=== PATIENT | female | born 1970 | race Caucasian/White ===

== ENCOUNTER 2021-01-21 16:59 | Outpatient (REF) | payer OTHER, SELFPAY ==
--- NOTE | ~2021-01-21 | XR_ITS ---
Examination: XR hand wrist LT Indication: S69.90XA - Unspecified injury of left wrist, hand Comparison: No pertinent prior studies are currently available for comparison. Technique: 3 views of the left wrist and hand obtained Findings: Bones are normal anatomic alignment. I do not appreciate any acute fracture or dislocation. No bony destructive lesions or periosteal reaction. No significant bony degenerative changes. Surrounding soft tissues unremarkable. XR/XR hand wrist LT Impression: No acute bony abnormality.
== END 2021-01-21 17:00 | disposition home or self-care (01) ==
LOC: HO.HMGCX 16:59
PROVIDERS: PCP Internal Medicine; Visit Provider Nurse Practitioner Family
DX: S69.92XA Unspecified injury of left wrist, hand and finger(s), initial encounter (principal); X58.XXXA Exposure to other specified factors, initial encounter; Y93.9 Activity, unspecified; Y92.9 Unspecified place or not applicable; Y99.9 Unspecified external cause status
CPT/HCPCS: 73110; 73130

== ENCOUNTER 2021-02-07 11:41 | Outpatient (REF) | payer OTHER, SELFPAY ==
--- NOTE | ~2021-02-07 | XR_ITS ---
EXAMINATION: XR CHEST CLINICAL INFORMATION: Covid 19 infection COMPARISON: None TECHNIQUE: 2 views of the chest were obtained. FINDINGS: The lungs are well expanded. There is no focal consolidation, edema, or effusion. Mild bronchial wall thickening noted. No pneumothorax. The cardiomediastinal silhouette is within normal limits. No acute osseous abnormality. XR/XR chest 2V IMPRESSION: No consolidation or significant parenchymal abnormality. There is bronchial wall thickening which can be seen with viral infection or asthma.
[2021-02-07 12:25] LABS: MANUAL DIFF FLAG NO
[2021-02-07 12:31] LABS: Basophils Percent Auto 0.2 % (0-2); Hematocrit 38.6 % (37-47); Hemoglobin 12.7 g/dl (12.0-16.0); Imm Gran Abs Auto 0.01 X10*3/uL (0.00-0.03); Imm Gran Pct Auto 0.2 % (0.0-0.4); Lymphocytes Absolute Auto 1.1 X10*3/uL (1.2-4.9); Lymphocytes Percent Auto 23.5 % (20-40); Mean Corpuscular HGB Conc 32.9 g/dl (31.0-35.0); Mean Corpuscular Hemoglobin 29.7 pg (27.0-33.0); Mean Corpuscular Volume 90.2 fL (80-98); Mean Platelet Volume 10.2 fL (9.4-12.3); Monocytes Absolute Auto 0.4 X10*3/uL (0.1-1.2); Monocytes Percent Auto 8.6 % (2-11); Neutrophils Absolute Auto 3.1 X10*3/uL (2.0-8.3); Neutrophils Percent Auto 67.5 % (45-73); Platelet Count 219 X10*3/uL (160-400); Red Blood Count 4.28 X10*6/uL (4.20-5.50); White Blood Count 4.6 X10*3/uL (4.8-10.8)
[2021-02-07 13:04] LABS: Alanine Aminotransferase 92 U/L (0-31); Albumin Level 4.1 g/dL (3.5-5.0); Alkaline Phosphatase 110 U/L (39-117); Anion Gap 11 (12-20); Aspartate Amino Transferase 72 U/L (5-31); Bilirubin Total 0.3 mg/dL (0.0-1.0); Blood Urea Nitrogen 11 mg/dL (9-16); C Reactive Protein 2.56 mg/dL (< or = 0.50); Calcium 8.5 mg/dL (8.4-10.2); Carbon Dioxide 28 mmol/L (22-29); Chloride 105 mmol/L (96-108); Estimated Glomerular Filt Rate > 60; Glucose Random 103 mg/dL (60-115); Potassium 4.4 mmol/L (3.3-5.1); Sodium 140 mmol/L (135-145); Total Protein 6.4 g/dL (6.5-8.0)
[2021-02-07 13:23] LABS: Erythrocyte Sedimentation Rate 34 MM/HR (0-20)
== END 2021-02-07 11:42 | disposition home or self-care (01) ==
LOC: HO.XRAY 11:41
PROVIDERS: PCP Internal Medicine; Visit Provider Internal Medicine
DX: U07.1 COVID-19 (principal)
CPT/HCPCS: 36415; 71046; 80053; 85025; 85652; 86140

== ENCOUNTER 2021-05-02 08:52 | Outpatient (REF) | payer OTHER, SELFPAY ==
[2021-05-02 11:12] LABS: MANUAL DIFF FLAG NO
[2021-05-02 11:43] LABS: Basophils Percent Auto 0.6 % (0-2); Eosinophils Percent Auto 0.6 % (0-4); Hematocrit 38.9 % (37-47); Hemoglobin 12.9 g/dl (12.0-16.0); Imm Gran Abs Auto 0.01 X10*3/uL (0.00-0.03); Imm Gran Pct Auto 0.3 % (0.0-0.4); Lymphocytes Absolute Auto 1.3 X10*3/uL (1.2-4.9); Lymphocytes Percent Auto 36.7 % (20-40); Mean Corpuscular HGB Conc 33.2 g/dl (31.0-35.0); Mean Corpuscular Hemoglobin 30.4 pg (27.0-33.0); Mean Corpuscular Volume 91.5 fL (80-98); Mean Platelet Volume 10.7 fL (9.4-12.3); Monocytes Absolute Auto 0.2 X10*3/uL (0.1-1.2); Monocytes Percent Auto 6.3 % (2-11); Neutrophils Absolute Auto 1.9 X10*3/uL (2.0-8.3); Neutrophils Percent Auto 55.5 % (45-73); Platelet Count 205 X10*3/uL (160-400); Red Blood Count 4.25 X10*6/uL (4.20-5.50); White Blood Count 3.5 X10*3/uL (4.8-10.8)
[2021-05-02 12:00] LABS: Alanine Aminotransferase 26 U/L (0-31); Albumin Level 4.6 g/dL (3.5-5.0); Alkaline Phosphatase 45 U/L (39-117); Anion Gap 14 (12-20); Aspartate Amino Transferase 23 U/L (5-31); Bilirubin Total 0.8 mg/dL (0.0-1.0); Blood Urea Nitrogen 11 mg/dL (9-16); C Reactive Protein 0.04 mg/dL (< or = 0.50); Calcium 9.4 mg/dL (8.4-10.2); Carbon Dioxide 24 mmol/L (22-29); Chloride 109 mmol/L (96-108); Cholesterol 178 mg/dL; Estimated Glomerular Filt Rate > 60; Glucose Fasting 109 mg/dL (60-99); HDL Cholesterol 56 mg/dL; LDL Cholesterol Calculated 100 mg/dl; Potassium 4.6 mmol/L (3.3-5.1); Sodium 142 mmol/L (135-145); Total Protein 7.1 g/dL (6.5-8.0); Triglycerides 113 mg/dL
[2021-05-02 12:08] LABS: Thyroid Stimulating Hormone 1.55 uIU/mL (0.32-4.0); Vitamin D 25-OH Total 50.4 ng/mL (>30)
[2021-05-02 12:15] LABS: Erythrocyte Sedimentation Rate 3 MM/HR (0-20)
[2021-05-03 07:51] LABS: Follicle Stimulating Hormone 6.5 mIU/mL
== END 2021-05-02 08:53 | disposition home or self-care (01) ==
LOC: HO.HMGCLDS 08:52
PROVIDERS: PCP Internal Medicine; Visit Provider Internal Medicine
DX: L65.9 Nonscarring hair loss, unspecified (principal); N95.1 Menopausal and female climacteric states; E78.00 Pure hypercholesterolemia, unspecified; F41.1 Generalized anxiety disorder; K21.9 Gastro-esophageal reflux disease without esophagitis
CPT/HCPCS: 36415; 80053; 80061; 82306; 83001; 83002; 84443; 85025; 85652; 86140

== ENCOUNTER 2023-02-03 07:28 | Day surgery (SDC) | payer BC, SELFPAY ==
[2023-02-03 08:00] VITALS: BMI 28.9
[2023-02-03 08:09] VITALS: BP 128/79; PULSE 79; RESP 16; TEMP 36.6; O2SAT 99
[2023-02-03] MEDS: Lactated Ringers 1,000 ML 50 ML IVCONT (08:27)
--- NOTE | 2023-02-03 08:41 | HO.ANESPROP2 ---
HPI - Anesthesia Eval Consult details Narrative: 52 F for EGD functional status greater than 4 mets No CP , no SOB PMFSH Active Problems Active Problems: All Active Problems (Updated 02/03/23 @ 08:00 by Jeanette Bridges RN) Hand trauma (Acute) Cellulitis (Acute) Past Medical History Medical History (Updated 02/03/23 @ 08:00 by Jeanette Bridges RN) Anxiety Depression Hyperlipidemia Lipoma Lipoma of back Functional capacity: independent ambulation Family History Family history of problems with anesthesia: No Surgical History Surgical History (Updated 02/02/23 @ 13:42 by Angeline Barry RN) H/O colonoscopy H/O esophagogastroduodenoscopy Previous section History of Problems with Anesthesia: Yes (PONV ) Social History Social History Patient Tobacco Use Status: Former Tobacco user Meds Allergies Allergy/AdvReac Type Severity Reaction Status Date / Time No Known Allergies Allergy Verified 02/03/23 07:58 [No Known Allergies*] Active Medications: Current Medications Lactated Ringer's (Lr) 1,000 mls @ 50 mls/hr IVCONT .Q20H PER Last Admin: 02/03/23 08:27 Dose: 50 mls/hr Home Medications Medication Instructions Recorded Confirmed Last Taken Type escitalopram oxalate 10 mg tablet 10 mg PO DAILY 01/21/21 02/03/23 Unknown History (Lexapro) rosuvastatin 5 mg tablet 5 mg PO DAILY 01/21/21 02/03/23 Unknown History omeprazole 20 mg capsule,delayed 20 mg PO DAILY 02/03/23 02/03/23 Unknown History release Exam Exam Date and Time: February 03, 2023 0841 Height,Weight and Vital Signs: Height 5 ft 1 in Weight 69.4 kg Last Vital Signs Temp 97.8 F 02/03/23 08:09 Pulse 79 02/03/23 08:09 Resp 16 02/03/23 08:09 BP 128/79 02/03/23 08:09 Pulse Ox 99 02/03/23 08:09 O2 Del Method Room Air 02/03/23 08:09 Airway Mallampati Class: III Neck ROM: Full Loose/Missing/Broken Teeth: Yes (fillings ) Assessment and Plan Assessment Anesthesia Assessment: Anesthesia Plan Discussed and Chart Reviewed Final Anesthetic Review Family History of Problems with Anesthesia: No History of Problems with Anesthesia: Yes (PONV ) NPO: Yes ASA Class: II Final Preanesthetic Review: Meds/Allgs Chart Reviewed, Consent Obtained/Reviewed and Anes Risks/Benef Reviewed Patient Risk: Intermediate Procedure Risk: Intermediate Assessment/Block/Sedation in SS: Assess/Block/Sedation-SS Anesthetic Plan Anesthetic Plan: MAC: and Agree w/ Assess. and Plan Disposition: Standard PACU
--- NOTE | 2023-02-03 09:31 | PM.OP ---
Brief Operative Note Date of Service: 02/03/23 Pre-op diagnosis: GERD, Barragan's esophagus Post-op diagnosis: other (Same, Hiatal hernia) Procedure: EGD with biopsies Surgeon: Koko Eduardo Anesthesia: MAC Was an Highway Traffic Control Technician used for this Procedure?: No Estimated blood loss (mL): 2.0 Pathology: other (A. EG Junction at 33cm) Condition: stable Disposition: PACU
[2023-02-03 09:34] VITALS: BP 119/73; PULSE 81; RESP 16; TEMP 36.4; O2SAT 99
[2023-02-03 09:49] VITALS: BP 131/76; PULSE 68; RESP 16; TEMP 36.4; O2SAT 98
--- NOTE | 2023-02-03 10:02 | HO.ANESPROP2 ---
HPI - Anesthesia Eval Consult details Narrative: dysphagiw PMFSH Active Problems Active Problems: All Active Problems (Updated 02/03/23 @ 08:00 by Jeanette Bridges RN) Hand trauma (Acute) Cellulitis (Acute) Past Medical History Medical History (Updated 02/03/23 @ 08:00 by Jeanette Bridges RN) Anxiety Depression Hyperlipidemia Lipoma Lipoma of back Functional capacity: independent ambulation Family History Family history of problems with anesthesia: No Surgical History Surgical History (Updated 02/02/23 @ 13:42 by Angeline Barry RN) H/O colonoscopy H/O esophagogastroduodenoscopy Previous section History of Problems with Anesthesia: No (PONV ) Social History Social History Patient Tobacco Use Status: Former Tobacco user Use of substances other than those prescribed or required for medical reasons: No Are you DNR?: No Advance Directives: No Advance Directives Information Provided: Yes Recently lost weight without trying: No Nutrition Risks: No Nutritional Risk Meds Allergies Allergy/AdvReac Type Severity Reaction Status Date / Time No Known Allergies Allergy Verified 02/03/23 07:58 [No Known Allergies*] Active Medications: Current Medications Lactated Ringer's (Lr) 1,000 mls @ 50 mls/hr IVCONT .Q20H PER Last Admin: 02/03/23 08:27 Dose: 50 mls/hr Home Medications Medication Instructions Recorded Confirmed Last Taken Type escitalopram oxalate 10 mg tablet 10 mg PO DAILY 01/21/21 02/03/23 Unknown History (Lexapro) rosuvastatin 5 mg tablet 5 mg PO DAILY 01/21/21 02/03/23 Unknown History omeprazole 20 mg capsule,delayed 20 mg PO DAILY 02/03/23 02/03/23 Unknown History release Exam Exam Date and Time: February 03, 2023 1002 Height,Weight and Vital Signs: Height 5 ft 1 in Weight 69.4 kg Last Vital Signs Temp 97.5 F 02/03/23 09:49 Pulse 68 02/03/23 09:49 Resp 16 02/03/23 09:49 BP 131/76 02/03/23 09:49 Pulse Ox 98 02/03/23 09:49 O2 Del Method Room Air 02/03/23 09:49 Airway Mallampati Class: II TM Dist: >3cm Neck ROM: Full Loose/Missing/Broken Teeth: No Heart: rr Lungs: cta Assessment and Plan Assessment Anesthesia Assessment: Anesthesia Plan Discussed and Chart Reviewed Final Anesthetic Review Family History of Problems with Anesthesia: No History of Problems with Anesthesia: No (PONV ) NPO: Yes ASA Class: II Final Preanesthetic Review: No Changes in Pt Med Stat, Meds/Allgs Chart Reviewed, Consent Obtained/Reviewed and Anes Risks/Benef Reviewed Patient Risk: Low Procedure Risk: Low Anesthetic Plan Anesthetic Plan: MAC: Disposition: Standard PACU
--- NOTE | 2023-02-03 13:20 | OP_ITS ---
DATE OF SERVICE: 02/03/2023 SURGEON: Koko Eduardo MD INDICATIONS: The patient presents for evaluation of gastroesophageal reflux and Barragan's esophagus. Full consent has been obtained from her for this, including risks of bleeding and perforation. PREOPERATIVE DIAGNOSIS: POSTOPERATIVE DIAGNOSIS: PROCEDURE PERFORMED: Esophagogastroduodenoscopy with biopsies. ESTIMATED BLOOD LOSS: COMPLICATIONS: ANESTHESIA: Monitored anesthesia care. ASSISTANTS: SPECIMENS: PREOPERATIVE DIAGNOSES: Reflux and Barragan's esophagus. POSTOPERATIVE DIAGNOSES: Reflux and Barragan's esophagus, hiatal hernia. DESCRIPTION OF PROCEDURE: The patient was placed in the left lateral decubitus position. The Olympus video gastroscope was passed in the posterior oropharynx and upper esophagus under direct vision. The scope was passed slowly to the distal esophagus. The gastroesophageal junction appeared at 33 cm. There was some slight irregularity consisted with reflux and possibly small areas of Barragan's mucosa. There was no esophagitis, ulcerations, nor any lesions. There was a small to moderate-sized hiatal hernia. The scope was advanced to pylorus and the duodenum was cannulated to the descending portion. The duodenum including the bulb appeared normal without mass or ulceration. The scope was then withdrawn back in the stomach. The gastric antrum and body appear normal with good peristalsis. Scope was retroflexed visualizing the proximal stomach carefully, which appeared normal, without any sign of mass or ulceration. Scope was straightened. Scope was then withdrawn back in the esophagus. Multiple biopsies were obtained at the EG junction at 33 cm. Proximal to this, the esophageal mucosa appeared normal. The scope was withdrawn from the patient. She tolerated the procedure well and was returned to the recovery area in stable condition. IMPRESSION: 1. Hiatal hernia. 2. Gastroesophageal reflux. 3. History of Barragan's esophagus. PLAN: The results of the biopsies will be checked. I have recommended a repeat upper endoscopy in 3 years if there is no dysplasia on today's specimen. She was advised to continue omeprazole either daily or as needed for reflux symptoms. She was advised not to use any aspirin or NSAIDs for one week. She would otherwise see me on a p.r.n. basis. MD IRENA Griffin/KARINA / [id number] [facility] CENTERDixie
== END 2023-02-03 10:10 | disposition home or self-care (01) ==
PROVIDERS: PCP Internal Medicine; Visit Provider Internal Medicine
PROC: 0DJ08ZZ Inspection of Upper Intestinal Tract, Via Natural or Artificial Opening Endoscopic (ICD-10-PCS; CPT 43235; principal; 2023-02-03 08:30)
DX: K22.70 Barrett's esophagus without dysplasia (principal); K21.9 Gastro-esophageal reflux disease without esophagitis; K44.9 Diaphragmatic hernia without obstruction or gangrene; E78.5 Hyperlipidemia, unspecified; F41.8 Other specified anxiety disorders; Z79.899 Other long term (current) drug therapy; Z87.891 Personal history of nicotine dependence
CPT/HCPCS: 43239; 88305

== ENCOUNTER 2024-09-13 08:26 | Outpatient (REF) | payer BC, SELFPAY ==
[2024-09-13 10:42] LABS: MANUAL DIFF FLAG NO
[2024-09-13 10:50] LABS: Basophils Percent Auto 0.7 % (0-2); Hematocrit 41.2 % (37.0-47.0); Hemoglobin 13.5 g/dl (12.0-16.0); Imm Gran Abs Auto 0.01 X10*3/uL (0.00-0.03); Imm Gran Pct Auto 0.3 % (0.0-0.4); Lymphocytes Absolute Auto 1.5 X10*3/uL (1.2-4.9); Lymphocytes Percent Auto 50.5 % (20-40); Mean Corpuscular HGB Conc 32.8 g/dl (31.0-35.0); Mean Corpuscular Hemoglobin 30.1 pg (27.0-33.0); Mean Corpuscular Volume 91.8 fL (80.0-98.0); Mean Platelet Volume 10.7 fL (9.4-12.3); Monocytes Absolute Auto 0.2 X10*3/uL (0.1-1.2); Monocytes Percent Auto 7.9 % (2-11); Neutrophils Absolute Auto 1.2 x10*3/uL (2.0-8.3); Neutrophils Percent Auto 39.6 % (45-73); Platelet Count 199 X10*3/uL (160-400); Red Blood Count 4.49 X10*6/uL (4.20-5.50); White Blood Count 3.1 X10*3/uL (4.8-10.8)
[2024-09-13 11:32] LABS: Alanine Aminotransferase 54 U/L (0-31); Albumin Level 4.4 g/dL (3.5-5.0); Alkaline Phosphatase 74 U/L (39-117); Anion Gap 11 (12-20); Aspartate Amino Transferase 41 U/L (5-31); Bilirubin Total 0.5 mg/dL (0.0-1.0); Blood Urea Nitrogen 15 mg/dL (9-16); Calcium 9.8 mg/dL (8.4-10.2); Carbon Dioxide 27 mmol/L (22-29); Chloride 106 mmol/L (96-108); Cholesterol 204 mg/dL (<200); Estimated Glomerular Filt Rate > 60; Glucose Fasting 109 mg/dL (60-99); HDL Cholesterol 57 mg/dL (>40); LDL Cholesterol Calculated 123 mg/dL (<100); Potassium 4.3 mmol/L (3.3-5.1); Sodium 140 mmol/L (135-145); Thyroid Stimulating Hormone 1.42 uIU/mL (0.32-4.0); Triglycerides 123 mg/dL (<150); Vitamin D 25-OH Total 69.4 ng/mL (>30)
== END 2024-09-13 08:27 | disposition home or self-care (01) ==
LOC: HO.HMGCLDS 08:26
PROVIDERS: PCP Internal Medicine; Visit Provider Internal Medicine
DX: Z00.00 Encounter for general adult medical examination without abnormal findings (principal); F41.1 Generalized anxiety disorder; E78.00 Pure hypercholesterolemia, unspecified; K22.70 Barrett's esophagus without dysplasia
CPT/HCPCS: 36415; 80053; 80061; 82306; 84443; 85025

== ENCOUNTER 2025-08-07 09:49 | Outpatient (AMB) | payer BC, SELFPAY ==
--- NOTE | 2025-08-07 09:46 | A.OFFPC_ITS ---
Vital Signs 08/07/25 09:53 Height 5 ft 1.81 in Weight 143 lb 8 oz BMI 26.4 BP 124/70 Blood Pressure Location Rt brachial Position Sitting Respiration 16 Pulse 71 Pulse Source Pulse Oximeter Temp 96.8 F Temp Source Temporal Artery Scan Pulse Oximetry (%) 97 Oxygen Delivery Method Room Air Intake Visit Reasons: physical/ transfer Mapping Pilot Required: No Accompanied by: Self / Same As Patient Allergies No Known Allergies (No Known Allergies*) Allergy (Verified 08/07/25 14:33) Medication List - Last Reconciled 08/07/25 by Ami Shankar PA-C escitalopram oxalate (Lexapro) 10 mg PO DAILY omeprazole 20 mg PO DAILY rosuvastatin 5 mg PO DAILY Tobacco use date assessed: 08/07/25 Dental Screening Dental Screen Date: 08/07/25 Did you have a dental visit in the last 12 months?: Yes Did you have a dental problem in the last 6 months where you did not have access to dental care?: No Was dental information given to patient?: Patient has dentist HPI physical/ transfer HPI Details The patient is a 54-year-old female presenting for a Annual physical exam and evaluation of chronic conditions. The patient has a history of chronic leukopenia, first noted in 2020, with no identified cause. Her sister also has a similar condition, suggesting a possible familial link. Despite the low white blood cell count, her platelet count remains normal, reducing the concern for malignancy or any other acute processes. The patient reports elevated liver enzymes, with AST and ALT levels noted at 41 and 54, respectively. These levels have fluctuated in the past, potentially related to alcohol consumption, which the patient has since reduced. The patient experienced a significant elevation in liver enzymes following a COVID-19 infection, which has been noted to cause liver inflammation in some cases. The patient has a diagnosis of Barragan's esophagus, for which she has undergone multiple endoscopies. She is due for another endoscopy soon and has had one colonoscopy in the past, with no immediate need for another based on current guidelines. The patient has a history of hyperlipidemia, with total cholesterol at 204 mg/dL and LDL at 123 mg/dL. She has been advised to manage her cholesterol through diet and exercise, with the possibility of resuming statin therapy if levels do not improve. The patient experiences anxiety, particularly related to her heart rate during exercise. She reports her heart rate reaching 160 bpm during long runs, but denies any associated chest pain or dizziness. She has been reassured that this is likely sinus tachycardia, a normal response to exercise. Social History - Exercise: Engages in regular exercise, including running and gym workouts, three days a week each. - Alcohol Consumption: Previously consum ed alcohol regularly but has significantly reduced intake. - Family History: Sister with similar le ukopenia; mother with osteoporosis. [facility] Medical History (Updated 08/07/25 @ 16:54 by Ami Shankar PA-C) Preventative health care Sinus tachycardia Barretts esophagus Elevated liver enzymes Chronic leukopenia Annual physical exam Palpitations Lipoma Lipoma of back Hyperlipidemia Anxiety Depression Surgical History Previous section H/O colonoscopy H/O esophagogastroduodenoscopy Family History Father Head and neck cancer High blood pressure Mother No problems noted. Social History Housing: House Patient Tobacco Use Status: Never used Tobacco service: No Current occupational status: employed Cognitive needs: No Hearing needs: No Vision needs: Yes (rx glasses) Questionnaire PHQ-9 Over the last 2 weeks, how often have you been bothered by any of the following problems? 1. Little interest or pleasure in doing things: not at all 2. Feeling down, depressed, or hopeless: not at all 3. Trouble falling or staying asleep, or sleeping too much: not at all 4. Feeling tired or having little energy: not at all 5. Poor appetite or overeating: not at all 6. Feeling bad about yourself - or that you are a failure or have let yourself or your family down: not at all 7. Trouble concentrating on things, such as reading the newspaper or watching television: not at all 8. Moving or speaking so slowly that other people could have noticed. Or the opposite - being so fidgety or restless that you have been moving around a lot more than usual: not at all 9. Thoughts that you would be better off or of hurting yourself in some way: not at all Total score: 0 Depression Screening Interpretation: Negative Depression Screening Done: Yes 34112 - PHQ-9 Billing: Yes Source: Developed by Drs. Koko Horta, Gregory Collins and colleagues, with an educational zan from [employer]. Thrive Questionnaire Date Thrive assessed: 08/07/25 I am a: Patient What is your living situation today?: I have a steady place to live Within the past 12 months, did the food you bought not last and you didn't have the money to get more?: Never true Within the past 12 months, did you worry whether your food would run out before you got money to buy more?: Never true Do you have trouble paying for medicines?: No Do you have trouble getting transportation to medical appointments?: No Do you have trouble paying your heating and electricity bill?: No Do you have trouble taking care of your child, family member or friend?: No Do you have trouble with day-to-day activities such as bathing, preparing meals, shopping, managing finances, etc.?: No Are you currently unemployed and looking for a job?: No Are you interested in more education?: No Please select the resources that you would like help with: None THRIVE Score: 0 AUDIT C Alcohol Use Questionnaire (AUDIT-C) 1. How often do you have a drink containing alcohol?: 2-3 times a week 3. How often do you have six or more drinks on one occasion?: Never Total Score: 3 Score Reviewed/Action Taken: No MOE-7 AMB Questionnaire MOE-7 Date MOE - 7 assessed: 08/07/25 Feeling nervous, anxious, or on edge: 0 = Not at all Not being able to stop or control worryin = Not at all Worrying too much about different things: 0 = Not at all Trouble relaxin = Not at all Being so restless that it is hard to sit still: 0 = Not at all Becoming easily annoyed or irritable: 0 = Not at all Feeling afraid as if something awful might happen: 0 = Not at all Total MOE-7 score (0-4 normal; 5-9 mild; 10-14 moderate; 15-21 severe): 0 Source: Developed by Lizzy Cordova Kurt Kroenke and colleagues, with an educational zan from [employer]. MOE-7 Assessment Billing MOE-7 Assessment Tool: MOE-7 Assessment 27862 Review of Systems Const Details: - Cardiovascular: Reports elevated heart rate during exercise. Denies chest pain or dizziness. - Respiratory: Reports mild wheezing. Denies persistent cough or dyspnea. - Gastrointestinal: Reports history of Barragan's esophagus. Denies abdominal pain or changes in bowel habits. - Neurological: Reports anxiety related to heart rate. Denies headaches or dizziness. All systems reviewed & are unremarkable except as noted in HPI and below Physical exam (Primary Care) Vital Signs: Last Vital Signs Temp 96.8 F 08/07/25 09:53 Pulse 71 08/07/25 09:53 Resp 16 08/07/25 09:53 BP 124/70 08/07/25 09:53 Pulse Ox 97 08/07/25 09:53 Oxygen Delivery Method Room Air 08/07/25 09:53 Care Plan Goal for BP management: <140/90 at Goal BMI result Body Mass Index 26.4 BMI Assessment/Plan discussion: High BMI High, discussed plan: lifestyle, weight reduction, dietary, physical activity, alcohol moderation and other Tobacco/Smoking Status: Tobacco use Status Tobacco use date assessed 08/07/25 08/07/25 09:52 Patient Tobacco Use Status Never used Tobacco 08/07/25 10:05 PHQ-9: PHQ-9 Score PHQ-9: Total score 0 08/07/25 14:37 Depression Screening Interpretation: Negative Thrive Assessment: Date of Thrive Assessment Date Thrive assessed 08/07/25 08/07/25 09:52 Const Other: Appearance: Alert. Oriented X3. No acute distress. Head: Normal external exam. Normocephalic. Atraumatic. Eyes: Pupils are equal, round, and reactive to light. Extraocular movements intact. Conjunctiva and sclera normal. Eyelids normal. Ears: External auditory canal normal. Tympanic membranes normal. Throat: Pharynx normal. Uvula midline. Moist mucous membranes. Neck: Normal inspection. Neck supple. Full range of motion. No adenopathy. Thyroid Normal. No meningeal signs. No neck mass noted. Cardiovascular: Normal heart rate and rhythm. Heart sound normal. No murmurs noted. Pulses normal throughout. Heart rate can reach 160 during exercise, but no chest pain or other symptoms reported. Respiratory: No respiratory distress. Painless inspiration. Breath sounds normal. No wheezes/rales/rhonchi noted. Chest nontender. No accessory muscle us age noted or decreased air movement noted. Slight phlegm present, more on the right side. Abdomen: Soft and nontender. Bowel sounds normal in all 4 quadrants. No distention noted. No organomegaly noted. No visible injury noted. Back: No costovertebral angle tenderness. Full range of motion noted. Skin: Skin warm and dry. Normal skin color. Normal skin turgor. No rashes/lesions/lacerations noted. Extremities: No lower extremity edema. Extremities exhibit normal range of motion. Extremities nontender. Neuro: Oriented X 3. No motor deficit. No sensory deficit. Reflexes normal. Office Procedures EKG Details: EKG normal sinus rhythm with a ventricular rate of 60 through 65 with a normal WA interval normal QRS duration normal QT/QTC interval no acute ischemic change are noted. Reviewed by Dr. Norris by amber landry and he agrees no acute ischemic change are noted. [id number], Complete Flu Questionnaire Does the patient have a severe egg allergy?: No Does the patient have severe life threatening allergies?: No Does the patient have a fever or illness today?: No Has the patient ever had Guillain-Gerry Syndrome?: No Has the patient ever had any past reaction to a flu shot?: No Results AMB Hemoglobin A1c AMB Hemoglobin A1c 5.2 % Last Edit by ANTONETTE Miller on 08/07/25 10:29 Immunizations Fluarix [id number] (PF) 45 mcg (15 mcg x 3)/0.5 mL IM syringe Performing Provider: Ami Shankar PA-C [facility] [facility] [place] Administered by: ANTONETTE Miller on 08/07/25 11:11 Dose Route Admin Location Dispensed Lot Number Expiration Date [facility] Closer On 0.5 mL IM Left Deltoid 0.5 mL [id number] 04/30/26 [id number] [employer] VIS Given Date VIS Provided VIS Publication Date 08/07/25 Single Vaccine 24 Eligibility Eligibility Date Funding Source Not [facility] Eligible 08/07/25 Private Results Reviewed Results Reviewed: Laboratory Last Values Hgb A1c (Clinic) 5.2 % (4.0-6.0) 08/07/25 10:25 - Labs: Chronic leukopenia noted since 2020, normal platelet count. - Labs: Elevated AST and ALT at 41 and 54, respectively. - Labs: Total cholesterol 204 mg/dL, LDL 123 mg/dL, HDL 57 mg/dL. Coding Level of Care Code New Pt Level 4 (80527) New Pt Prev Care 40-64y(71338) Diagnoses Annual physical exam Z00.00 Chronic leukopenia D72.819 Elevated liver enzymes R74.8 Barretts esophagus K22.70 Hyperlipidemia E78.5 Sinus tachycardia R00.0 [facility] Z00.00 CPT Codes EKG - CPT: 03367-Tuowmmnzcssqqrqxf, Complete ([id number]) Additional Codes MOE-7 Assessment Billing - MOE-7 Assessment Tool: MOE-7 Assessment 71160 ([id number]) PHQ-9 - 52142 - PHQ-9 Billing: Yes ([id number]) Time Spent (min) 60 Assessment & Plan Assessment & Plan (1) Annual physical exam: Code(s): Z00.00 - Encounter for general adult medical examination without abnormal findings Category: Medical (2) Chronic leukopenia: Code(s): D72.819 - Decreased white blood cell count, unspecified Category: Medical Plan: The patient will undergo routine monitoring of her white blood cell count to ensure stability and rule out any underlying conditions. No immediate intervention is required as platelet counts are normal, reducing the concern for malignancy. (3) Elevated liver enzymes: Code(s): R74.8 - Abnormal levels of other serum enzymes Category: Medical Plan: The patient is advised to continue reducing alcohol intake and will have liver function tests repeated to monitor enzyme levels. If levels remain elevated, further investigation into potential causes will be considered. (4) Barretts esophagus: Code(s): K22.70 - Barragan's esophagus without dysplasia Category: Medical Plan: The patient is scheduled for a follow-up endoscopy to monitor the condition of her esophagus. She will continue with current management strategies and report any new symptoms immediately. (5) Hyperlipidemia: Code(s): E78.5 - Hyperlipidemia, unspecified Category: Medical Plan: The patient is encouraged to manage her cholesterol levels through diet and exercise. If lipid levels do not improve, resumption of statin therapy will be considered. (6) Sinus tachycardia: Code(s): R00.0 - Tachycardia, unspecified Category: Medical Plan: The patient is advised that her elevated heart rate during exercise is likely a normal physiological response. She will undergo an EKG to confirm normal sinus rhythm and rule out any underlying cardiac issues. (7) Preventative health care: Code(s): Z00.00 - Encounter for general adult medical examination without abnormal findings Category: Medical Plan: The patient will receive the influenza vaccination as part of her preventative care measures, provided she remains afebrile. Plan Plan Patient was informed and verbally consented to the use of an ambient scribe for clinic note documentation during this visit. 1. Chronic Leukopenia The patient will undergo routine monitoring of her white blood cell count to ensure stability and rule out any underlying conditions. No immediate intervention is required as platelet counts are normal, reducing the concern for malignancy. 2. Elevated Liver Enzymes The patient is advised to continue reducing alcohol intake and will have liver function tests repeated to monitor enzyme levels. If levels remain elevated, further investigation into potential causes will be considered. 3. Barragan's Esophagus The patient is scheduled for a follow-up endoscopy to monitor the condition of her esophagus. She will continue with current management strategies and report any new symptoms immediately. 4. Hyperlipidemia The patient is encouraged to manage her cholesterol levels through diet and exercise. If lipid levels do not improve, resumption of statin therapy will be considered. 5. Anxiety The patient is reassured regarding her heart rate during exercise and advised to monitor for any new symptoms. An EKG will be performed to ensure normal cardiac rhythm. 6. Sinus Tachycardia The patient is advised that her elevated heart rate during exercise is likely a normal physiological response. She will undergo an EKG to confirm normal sinus rhythm and rule out any underlying cardiac issues. 7. Preventative Care: Influenza Vaccination The patient will receive the influenza vaccination as part of her preventative care measures, provided she remains afebrile. Orders: Orders Magnesium Today Z00.00 - Encounter for general adult medical examination without abnormal findings Vitamin D 25-OH Total Today Z00.00 - Encounter for general adult medical examination without abnormal findings UA CC w/rflx Micro + Cult Today Z00.00 - Encounter for general adult medical examination without abnormal findings Lyme IgG/IgM w/reflex to WB Today Z00.00 - Encounter for general adult medical examination without abnormal findings AMB Hemoglobin A1c Today Z13.9 - Encounter for screening, unspecified C Reactive Protein Today Z00.00 - Encounter for general adult medical exam ination without abnormal findings Complete Blood Count Auto Diff Today Z00.00 - Encounter for general adult medical examination without abnormal findings Comprehensive [place]. Panel Fast Today Z00.00 - Encounter for general adult medical examination without abnormal findings Lipid Panel Today Z00.00 - Encounter for general adult medical examination without abnormal findings Liver Panel Today Z00.00 - Encounter for general adult medical examination without abnormal findings Vitamin B12 and Folate Today Z00.00 - Encounter for general adult medical examination without abnormal findings TSH reflex Free T4 Today Z00.00 - Encounter for general adult medical examination without abnormal findings AMB EKG-In Office Today R00.2 - Palpitations Influenza [id number] Immunization Today Z23 - Encounter for immunization Patient Instructions: - Schedule and complete follow-up blood tests, including liver function tests and white blood cell count. - Continue reducing alcohol intake to help manage liver enzyme levels. - Maintain a healthy diet and regular exercise to manage cholesterol levels. - Monitor heart rate during exercise and report any new symptoms such as chest pain or dizziness. - Receive the influenza vaccination if no fever is present. - Follow up with an endoscopy as scheduled for Barragan's esophagus monitoring.
[2025-08-07 09:53] VITALS: BP 124/70; PULSE 71; RESP 16; TEMP 36; O2SAT 97; BMI 26.4
--- OUTSIDE RECORDS SUMMARY | 2025-08-07 11:18 | XMS_ITS | Clinical Summary ---
Author Organization [facility] Address [address] [place] [id number] Phone Care Team Providers Care Scientific Affairs Manager Name Role Phone GarrickKoko mckeon Primary Care Provider Allergies No known active allergies Medications escitalopram oxalate (LEXAPRO) 10 MG tablet Take 10 mg by mouth daily. Active Social History Tobacco Use Types Packs/Day Years Used Date Smoking Tobacco: Never Assessed Education Answer Date Recorded Are you interested in more education? Not on ruthy e 02/26/2023 Are you concerned about learning? Not on file 02/26/2023 No 02/26/2023 No 02/26/2023 Digital Access Answer Date Recorded No 03/27/2023 No 03/27/2023 No 03/27/2023 Reliable internet access at home? Not on file 03/27/2023 Device with a working camera? Not on file Comments Unknown Sex and Gender Information Value Date Recorded Sex Assigned at Not on file Legal Sex Female 11:23 AM EST Gender Identity Not on file Sexual Orientation Not on file Last Filed Vital Signs Vital Sign Reading Time Taken Comments Blood Pressure 102/64 11/12/2018 11:35 AM EST Pulse 82 11/12/2018 11:35 AM EST Temperature 36.8 C (98.2 F) 11/12/2018 11:35 AM EST Respiratory Rate 18 11/12/2018 11:35 AM EST Oxygen Saturation 100% 11/12/2018 11:35 AM EST Inhaled Oxygen Concentration - - Weight 66.7 kg (147 lb) 11/12/2018 11:35 AM EST Height 154.9 cm (5' 1 ) 11/12/2018 11:35 AM EST Body Mass Index 27.78 11/12/2018 11:35 AM EST Plan of Treatment Health Maintenance Due Date Last Done Comments Adult Td,Tdap Booster 1969 LIPID PANEL 1969 DEPRESSION SCREENING 1981 SMOKING Hx and SMOKELESS TOBACCO SCREENING 1982 HEPATITIS C SCREENING 1987 HIV ONE-TIME SCREENING (18-65 YEARS) 1987 PAP SMEAR 1990 MAMMOGRAM 2009 COLOGUARD 2014 COLONOSCOPY 2014 COLORECTAL CANCER SCREENING 2014 FIT TEST 2014 FOBT 2014 SIGMOIDOSCOPY 2014 VIRTUAL COLONOSCOPY 2014 PNEUMOCOCCAL VACCINES (50+ years) (1 of 1 - PCV) 2019 ZOSTER VACCINES (1 of 2) 2019 INFLUENZA VACCINE (#1) 2025 , 09/18/2020, 09/15/2019, Additional history exists COVID-19 VACCINE ( season) 2025 07/09/2021, 06/17/2021 HEPATITIS A VACCINES Aged Out No long er eligible based on patient's age to complete this topic HIB VACCINES Aged Out No longer eligi ble based on patient's age to complete this topic MENINGOCOCCAL VACCINES (ACWY) Aged Out No longer eligible based on patient's age to complete this topic MENINGOCOCCAL VACCINES (B) Aged Out N o longer eligible based on patient's age to complete this topic Medical Devices Not on file Insurance [facility] HMO POS Member Subscriber Plan / Payer (Ef fective 2018-Present) Name:Nancy Adam Relation to Subscriber:Self Name:Nancy Adam Payer ID:[id number] (NAIC) Group ID:Not on file Type:HMO Address: [address] HMO POS HMO POS HMO POS HMO [place] [address] [place] [address] HMO POS HMO POS HMO POS Member Subscriber Plan / Payer (Ef fective 2018-Present) Name:Nancy Adam Relation to Subscriber:Self Name:Nancy Adam Payer ID:[id number] (NAIC) Group ID:Not on file Type:HMO Address: [address] HMO POS HMO POS HMO [place] [address] [address] HMO POS [facility] [place] [address] [place] [address] HMO POS [facility] [place] [address] [place] [address] HMO POS Care Teams Scientific Affairs Manager Relationship Specialty Start Date End Date Koko Mccauley DO [address] [place] [phone] PCP - General Internal Medicine 11/12/18 Additional Source Comments The information contained in this document represents components of the legal health record. It is not the complete legal health record.[facility]
== END 2025-08-07 11:09 | disposition home or self-care (01) ==
LOC: HO.HMCSH 09:49
PROVIDERS: PCP Physician Assistant Medical; Visit Provider Physician Assistant Medical
DX: Z00.00 Encounter for general adult medical examination without abnormal findings (principal); D72.819 Decreased white blood cell count, unspecified; R74.8 Abnormal levels of other serum enzymes; K22.70 Barrett's esophagus without dysplasia; E78.5 Hyperlipidemia, unspecified; R00.0 Tachycardia, unspecified; Z23 Encounter for immunization; Z13.9 Encounter for screening, unspecified

== ENCOUNTER → 2025-08-07 09:49 | Outpatient (BNVA) | payer BC, SELFPAY | PROVIDERS: PCP Physician Assistant Medical; Visit Provider Physician Assistant Medical | DX: Z00.00 Encounter for general adult medical examination without abnormal findings (principal); R74.8 Abnormal levels of other serum enzymes; K22.70 Barrett's esophagus without dysplasia; E78.5 Hyperlipidemia, unspecified; F41.9 Anxiety disorder, unspecified; D72.819 Decreased white blood cell count, unspecified; R00.0 Tachycardia, unspecified; Z23 Encounter for immunization | CPT/HCPCS: 83036; 90471; 90656; 93005; 96127 ==

== ENCOUNTER 2025-08-17 07:36 | Outpatient (REF) | payer BC, SELFPAY ==
--- OUTSIDE RECORDS SUMMARY | 2025-08-17 07:39 | XMS_ITS | Clinical Summary ---
Author Organization [facility] Address [address] [place] [id number] Phone Care Team Providers Care Precision Jig Grinder Name Role Phone GarrickKoko mckeon Primary Care [...] 09/18/2020, 09/15/2019, Additional history exists COVID-19 VACCINE (3 - 2024- season) 2025 07/09/2021, 06/17/2021 RSV VACCINE (1 - 1-dose 75+ series) 2044 HEPATITIS A VACCINES Aged Out No long [...] topic Medical Devices Not on file Insurance [facility] HMO POS Member Subscriber Plan / Payer (Ef fective 2018-Present) Name:Nancy Adam Relation to Subscriber:Self Name:Nancy Adam Payer ID:[id number] (NAIC) Group ID:Not on file Type:HMO Address: [address] HMO POS HMO POS HMO POS HMO POS HMO POS [facility] HMO POS HMO POS [facility] HMO POS HMO POS H[place] [address] HMO POS HMO POS Member Subscriber Plan / Payer (Ef fective 2018-Present) Name:Nancy Adam Relation to Subscriber:Self Name:Nancy Adam Payer ID:[id number] (NAIC) Group ID:Not on file Type:HMO Address: [address] [place] [address] HMO POS Member Subscriber Plan / Payer (Ef fective 2018-Present) Name:Nancy Adam Relation to Subscriber:Self Name:Nancy Adam Payer ID:[id number] (NAIC) Group ID:Not on file Type:HMO Address: [address] [facility] [address] [place] [place] [address]O POS Care Teams Precision Jig Grinder Relationship Specialty Start Date End Date Koko Mccauley DO [address] [place] [id number] PCP - General Internal Medicine 11/12/18 Additional Source Comments The information contained in this document represents components of the legal health record. It is not the complete legal health record.[facility]
[2025-08-17 10:12] LABS: Appearance Urine Clear; Glucose Urine UA Negative (Negative); PH 6.0 (5.0-9.0); Specific Gravity - Urine 1.020 (1.005-1.025)
[2025-08-17 10:22] LABS: MANUAL DIFF FLAG NO
[2025-08-17 10:37] LABS: Hematocrit 38.5 % (37.0-47.0); Hemoglobin 12.5 g/dl (12.0-16.0); Imm Gran Abs Auto 0.01 X10*3/uL (0.00-0.03); Imm Gran Pct Auto 0.4 % (0.0-0.4); Lymphocytes Absolute Auto 1.4 X10*3/uL (1.2-4.9); Mean Corpuscular HGB Conc 32.5 g/dl (31.0-35.0); Mean Corpuscular Hemoglobin 29.7 pg (27.0-33.0); Mean Corpuscular Volume 91.4 fL (80.0-98.0); NRBC Abs Auto 0.020 X10*3/uL (0.0-0.012); NRBC Pct Auto 0.7 /100WBC (0.0-0.2); Platelet Count 200 X10*3/uL (160-400); Red Blood Count 4.21 X10*6/uL (4.20-5.50); White Blood Count 2.8 X10*3/uL (4.8-10.8)
[2025-08-17 13:13] LABS: Anion Gap 11 (12-20)
[2025-08-17 13:18] LABS: Alanine Aminotransferase 29 U/L (0-31); Albumin Level 4.5 g/dL (3.5-5.0); Alkaline Phosphatase 69 U/L (39-117); Aspartate Amino Transferase 27 U/L (5-31); Blood Urea Nitrogen 14 mg/dL (9-16); Calcium 9.1 mg/dL (8.4-10.2); Carbon Dioxide 26 mmol/L (22-29); Chloride 109 mmol/L (96-108); Cholesterol 248 mg/dL (<200); Estimated Glomerular Filt Rate > 60; HDL Cholesterol 55 mg/dL (>40); Magnesium 2.1 mg/dL (1.6-2.6); Potassium 4.4 mmol/L (3.3-5.1); Sodium 142 mmol/L (135-145); Total Protein 6.7 g/dL (6.5-8.0); Triglycerides 82 mg/dL (<150)
[2025-08-17 14:08] LABS: Folate 14.2 ng/mL (> or = 4.0); Vitamin B12 418 pg/mL (200-900)
[2025-08-18 09:43] LABS: Lyme Abs Screen <0.90 index
== END 2025-08-17 07:37 | disposition home or self-care (01) ==
LOC: HO.HMGCLDS 07:36
PROVIDERS: PCP Physician Assistant Medical; Visit Provider Physician Assistant Medical
DX: Z00.00 Encounter for general adult medical examination without abnormal findings (principal); Z13.6 Encounter for screening for cardiovascular disorders; Z01.84 Encounter for antibody response examination; Z13.21 Encounter for screening for nutritional disorder; Z13.29 Encounter for screening for other suspected endocrine disorder
CPT/HCPCS: 36415; 80053; 80061; 80076; 81003; 82248; 82306; 82607; 82746; 83735; 84443; 85025; 86140; 86617; 86618

== ENCOUNTER → 2025-09-18 10:03 | Outpatient (BNV) | payer BC, SELFPAY | PROVIDERS: PCP Physician Assistant Medical; Referring Provider Physician Assistant Medical; Visit Provider Internal Medicine Medical Oncology | DX: D72.819 Decreased white blood cell count, unspecified (principal) | CPT/HCPCS: 99203 ==